=== PATIENT | male | born 1995 | race Two or more races ===

== ENCOUNTER 2020-07-05 16:37 | Emergency (ER) | payer SELFPAY ==
[~2020-07-05] VITALS: Ht 167.6 cm; Wt 90.0 kg
[2020-07-05 18:29] VITALS: BP 132/89
[2020-07-05] MEDS ORDERED: KETOROLAC 60 MG/2 ML VIAL. IM ONE (18:45)
--- NOTE | 2020-07-05 18:48 | PHYS DOC ---
General Adult EDM: Chief Complaint: FOOT INJURY PAIN HPI: HPI: Patient is a 24 year old male who presents with pain in his left foot. Patient reports that about a week ago he woke up and when he put weight on his foot noticed some pain in the left foot. Over time this is actually worsened. He also reports that he has some pain in the left lateral thigh as well as the knee. He says it comes from the foot up to his thigh. He denied any fever, chills, sweats, cough, shortness of breath, chest pain, abdominal pain, back pain or change in urination. He denies any change in sensation in the lower extremities or strength. He describes the pain as sharp, worse with walking, worse in the morning when he first puts weight on it, consistent and constant Review of Systems: Review of Systems: Constitutional: Denies fever or chills. [] Eyes: Denies change in visual acuity. [] HENT: Denies nasal congestion or sore throat. [] Respiratory: Denies cough or shortness of breath. [] Cardiovascular: Denies chest pain or edema. [] GI: Denies abdominal pain, nausea, vomiting, bloody stools or diarrhea. [] : Denies dysuria. [] Musculoskeletal: See HPI. [] Integument: Denies rash. [] Neurologic: Denies headache, focal weakness or sensory changes. [] Endocrine: Denies polyuria or polydipsia. [] Lymphatic: Denies swollen glands. [] Psychiatric: Denies depression or anxiety. [] Heart Score: Risk Factors: Risk Factors: DM, Current or recent (<one month) smoker, HTN, HLP, family history of CAD, obesity. Risk Scores: Score 0 - 3: 2.5% MACE over next 6 weeks - Discharge Home Score 4 - 6: 20.3% MACE over next 6 weeks - Admit for Clinical Observation Score 7 - 10: 72.7% MACE over next 6 weeks - Early Invasive Strategies Physical Exam: PE: Constitutional: Well developed, well nourished, no acute distress, non-toxic appearance. [] [] Neck: Normal range of motion, no tenderness, supple, no stridor. [] Cardiovascular:Heart rate regular rhythm, no murmur [] Lungs & Thorax: Bilateral breath sounds clear to auscultation [] Abdomen: Bowel sounds normal, soft, no tenderness, no masses, no pulsatile masses. [] Skin: Warm, dry, no erythema, no rash. [] Back: No tenderness, no CVA tenderness. [] Extremities: Tenderness 1 cm anterior to the heel, as well as the plantar fascia reproducing his pain, pulses were 2 out of 2 in the dorsalis pedis posterior tibial, no rash erythema or calor. Full range of motion of the ankle midfoot and forefoot without any pain with range of motion., no cyanosis, no clubbing, ROM intact, no edema. [] Neurologic: Alert and oriented X 3, normal motor function, normal sensory function, no focal deficits noted. [] Psychologic: Affect normal, judgement normal, mood normal. [] EKG: EKG: [] Radiology/Procedures: Radiology/Procedures: [] Course & Med Decision Making: Course & Med Decision Making Pertinent Labs and Imaging studies reviewed. (See chart for details) 1846-the patient was seen and examined. No evidence of an exigent medical or surgical problems identified. I discussed with him the treatment plan, reasons to return and need for follow-up. [] Dragon Disclaimer: Dragon Disclaimer: This electronic medical record was generated, in whole or in part, using a voice recognition dictation system. Departure Departure Impression: Primary Impression: Plantar fasciitis of left foot Disposition: HOME, SELF-CARE Condition: STABLE Referrals: NO PCP (PCP) Patient Instructions: Plantar Fasciitis Additional Instructions: Aleve 2 pills twice a day with food, holding for stomach upset and return to the emergency room for black stools. Ice your foot for about a half an hour after work daily. Please get some inserts for your shoes. I recommend a follow-up with the delivery merchandiser Justicifation of Admission Dx: Justifications for Admission: Justification of Admission Dx: N/A ARAM GRACIA MD Jul 05, 2020 18:48
== END 2020-07-05 19:31 | disposition home or self-care (01) ==
LOC: ER 16:37
DX: M72.2 Plantar fascial fibromatosis (principal)
CPT/HCPCS: 96372; 99283; J1885

== ENCOUNTER 2021-08-02 20:15 | Emergency (ER) | payer OTHER ==
[~2021-08-02] VITALS: Ht 167.6 cm; Wt 86.4 kg
[2021-08-02 20:42] VITALS: BP 137/78
[2021-08-02] MEDS ORDERED: FLUORESCEIN OPHTH TEST STRIP. OS ONE (21:15)
[2021-08-02] MEDS ORDERED: TETRACAINE 0.5% OPHTH SOLUTION 4ML BOTTLE. OS ONE (21:15)
--- NOTE | 2021-08-02 22:50 | PHYS DOC ---
Past Medical History Past Medical History: No Pertinent History (MARCIEAGUSTINA Hany PARCEL POST DELIVERY) Past Surgical History: No Surgical History (AGUSTINA JACK Hany PARCEL POST DELIVERY) Smoking Status: Never Smoker Alcohol Use: None (AGUSTINA JACK BHUMI) General Adult EDM: Chief Complaint: EYE PROBLEMS HPI: HPI: Patient is a 25 year old French-speaking male patient presenting to the ED today complaining of a foreign body to the left eye. Patient states he was using a nail gun, he states something flew into his left eye. Patient did not have any goggles. Patient states his vision is blurry. (AGUSTINA JACK PARCEL POST DELIVERY) Review of Systems: Review of Systems: Constitutional: Denies fever or chills. [] Eyes: Reports foreign body to the left eye with blurry vision Integument: Denies rash. [] Neurologic: Denies headache, focal weakness or sensory changes. [] ] Psychiatric: Denies depression or anxiety. [] (AGUSTINA JACK Hany PARCEL POST DELIVERY) Heart Score: C/O Chest Pain: N/A Risk Factors: Risk Factors: DM, Current or recent (<one month) smoker, HTN, HLP, family history of CAD, obesity. Risk Scores: Score 0 - 3: 2.5% MACE over next 6 weeks - Discharge Home Score 4 - 6: 20.3% MACE over next 6 weeks - Admit for Clinical Observation Score 7 - 10: 72.7% MACE over next 6 weeks - Early Invasive Strategies (AGUSTINA JACK Hany PARCEL POST DELIVERY) Current Medications: Current Medications Medications (Trade) Dose Ordered Sig/Denny Start Time Stop Time Status Last Admin Dose Admin Fluorescein Sodium (Ful-Luisa) 1 strip 1X ONCE 08/02/21 21:15 08/02/21 21:16 DC Tetracaine HCl (Tetracaine) 1 drop 1X ONCE 08/02/21 21:15 08/02/21 21:16 DC (MARCIEAGUSTINA Hany PARCEL POST DELIVERY) Allergies: Allergies: Allergies Coded Allergies Type Severity Reaction Last Updated Verified No Known Drug Allergies 07/05/20 No (LISETamirAGUSTINA Hany PARCEL POST DELIVERY) Physical Exam: PE: Constitutional: Well developed, well nourished, no acute distress, non-toxic appearance. [] HENT: Normocephalic, atraumatic, bilateral external ears normal, oropharynx moist, no oral exudates, nose normal. [] Eyes: PERRLA, EOMI, left conjunctive a slightly injected, Left eye under Gupta lamp The left eye was numbed with tetracaine The left eye was stained with fluorescein No obvious foreign objects were noted, no corneal abrasions. Neurologic: Alert and oriented X 3, normal motor function, normal sensory function, no focal deficits noted. [] (AGUSTINA JACK APRN) Current Patient Data: Vital Signs: Vital Signs Date Time Temp Pulse Resp B/P (MAP) Pulse Ox O2 Delivery O2 Flow Rate FiO2 08/02/21 20:42 98.3 59 20 137/78 (97) 99 Room Air 98.3 (AGUSTINA JACK APRN) EKG: EKG: [] (AGUSTINA JACK APRN) Radiology/Procedures: Radiology/Procedures: [] (AGUSTINA JACK APRN) Course & Med Decision Making: Course & Med Decision Making Pertinent Labs and Imaging studies reviewed. (See chart for details) This a 25-year-old male patient presenting to the ED today with a sensation of foreign object to the left eye. He was walking with a nail gun and believes something flew into his left eye. Left eye was examined under Gupta lamp, no foreign objects were noted. No corneal lacerations were noted. He was discharged to home with follow-up with scientific illustrator. Tetanus up-to-date. (AGUSTINA JACK PARCEL POST DELIVERY) Course & Med Decision Making Care and Treatment plan independently provided by HEADING UP MACHINE OPERATOR. I was available for consult. I did evaluate patient. Patients chart reviewed. (JOSIE VELASQUEZ DO) Nataly Disclaimer: Nataly Disclaimer: This electronic medical record was generated, in whole or in part, using a voice recognition dictation system. (AGUSTINA JACK PARCEL POST DELIVERY) Departure Departure Impression: Primary Impression: Eye foreign body Qualified Codes: T15.92XA - Foreign body on external eye, part unspecified, left eye, initial encounter Disposition: HOME / SELF CARE / HOMELESS Condition: STABLE Referrals: NO PCP (PCP) MELLO ANG MD follow up in one week Patient Instructions: Eye - Corneal Foreign Body Additional Instructions: You were evaluated in the emergency room, no foreign objects were noted in your left eye. Please contact the provided scientific illustrator and follow-up as soon as possible AGUSTINA JACK APRN Aug 02, 2021 22:50 JOSIE VELASQUEZ DO Aug 06, 2021 18:20
== END 2021-08-02 23:01 | disposition home or self-care (01) ==
LOC: ER 20:15
DX: T15.92XA Foreign body on external eye, part unspecified, left eye, initial encounter (principal); X58.XXXA Exposure to other specified factors, initial encounter; Y93.89 Activity, other specified; Y92.89 Other specified places as the place of occurrence of the external cause; Y99.8 Other external cause status
CPT/HCPCS: 99283